=== PATIENT | female | born 1950 ===

== ENCOUNTER → 2018-08-26 | Outpatient (CLI) | payer OTHER ==
[~2018-08-26] MED LIST: CEPH500 PO; CONESTTC VAG; METF500 PO; Percocet 5-3251 EACH PO; Pyridium200 MG PO
[2018-08-26 21:24] LABS: Protein, Urine Random <5.0 mg/dL (0.0-11.9)
== END | disposition home or self-care (01) ==
LOC: LAB SHORT 14:05 → LAB 14:05
PROVIDERS: Internal Medicine
DX: N18.3 Chronic kidney disease, stage 3 (moderate) (principal)
CPT/HCPCS: 82570; 84156

== ENCOUNTER → 2024-10-26 | Outpatient (CLI) | payer MEDICARE, BC | END | disposition home or self-care (01) | LOC: LAB SHORT 15:37 → LAB 15:37 | DX: N39.0 Urinary tract infection, site not specified (principal) | CPT/HCPCS: 87086 ==